=== PATIENT | female | born 1980 | race African-American/Black ===

== ENCOUNTER 2017-10-08 03:16 | Emergency (ER) | payer MEDICARE ==
[2015-06-24 13:11] VITALS: BMI 40.6
[~2017-10-08 03:16] MED LIST: CYMBALTA60 MG PO; GLUCOPHAGE500 MG PO; HALDOL5 MG PO; KLONOPIN1 MG PO; PROTONIX40 MG PO; REGLAN10 MG PO
== END 2017-10-08 04:02 | disposition home or self-care (01) ==
LOC: D.ER 03:16
DX: G44.209 Tension-type headache, unspecified, not intractable (principal); E11.9 Type 2 diabetes mellitus without complications; I10 Essential (primary) hypertension; E03.9 Hypothyroidism, unspecified